=== PATIENT | male | born 1955 | race Caucasian/White ===

== ENCOUNTER 2024-07-09 03:20 | Inpatient (IN) | payer OTHER, MEDICAID ==
[~2024-07-09] VITALS: Ht 175.3 cm; Wt 81.6 kg
[2024-07-09 03:27] VITALS: BP 175/72; PULSE 85; RESP 14; TEMP 97.5; O2SAT 99
[2024-07-09 05:43] LABS: BASOPHILS % (AUTO) 0.4 % (0.0-2.0); EOSINOPHILS # (AUTO) 0.3 K/uL (0-0.4); EOSINOPHILS % (AUTO) 5.3 % (0.0-4.0); HEMATOCRIT 32.2 % (36-52); HEMOGLOBIN 10.6 g/dL (12.0-18.0); LYMPHOCYTES # (AUTO) 1.2 K/uL (2.0-11.5); LYMPHOCYTES % (AUTO) 18.3 % (20.5-51.1); MEAN CORPUSCULAR HEMOGLOBIN 28 pg (27-31); MEAN CORPUSCULAR HGB CONC 33 g/dL (33-37); MEAN CORPUSCULAR VOLUME 85.6 fL (80-94); MONOCYTES # (AUTO) 0.7 K/uL (0.8-1.0); MONOCYTES % (AUTO) 11.1 % (1.7-9.3); NEUTROPHILS # (AUTO) 4.1 K/uL (1.8-7.7); NEUTROPHILS % (AUTO) 64.9 % (42.2-75.2); PLATELET COUNT (AUTO) 192 K/uL (140-450); RED BLOOD CELL COUNT(AUTO) 3.77 MIL/uL (4.20-6.10); RED CELL DISTRIBUTION WIDTH 15.2 % (11.6-13.7); WHITE BLOOD COUNT (AUTO) 6.3 K/uL (4.8-10.8)
[2024-07-09 05:47] LABS: CALCIUM 8.8 mg/dL (8.5-10.1); CARBON DIOXIDE 25.6 mmol/L (21-32)
[2024-07-09 05:49] LABS: POTASSIUM 2.6 mmol/L (3.5-5.1)
[2024-07-09 05:58] LABS: ALANINE AMINOTRANSFERASE 13 U/L (12-78); ALBUMIN 3.4 g/dL (3.4-5.0); ALKALINE PHOSPHATASE 80 U/L (50-136); ASPARTATE AMINOTRANSFERASE 18 U/L (15-37); BILIRUBIN,DIRECT 0.1 mg/dL (0.0-0.3); LIPASE 11 U/L (16-77); TOTAL BILIRUBIN 0.4 mg/dL (0.0-1.0); TOTAL PROTEIN, SERUM 7.4 g/dL (6.4-8.2)
[2024-07-09] MEDS ORDERED: METO25TA PO (06:15)
[2024-07-09] MEDS ORDERED: AMLO5TAB PO (06:15)
[2024-07-09] MEDS ORDERED: METF-346 PO (06:15)
[2024-07-09] MEDS ORDERED: ATOR20TA PO (06:15)
[2024-07-09] MEDS ORDERED: POTA10TA70 PO (06:15)
[2024-07-09] MEDS ORDERED: ASPI-1129 PO (06:15)
[2024-07-09] MEDS ORDERED: SYN.05 PO (06:15)
[2024-07-09] MEDS ORDERED: ARIP10TA PO (06:15)
[2024-07-09] MEDS ORDERED: FURO-572 PO (06:15)
[2024-07-09] MEDS: NACL 0.9% 1,000 ML IV ONE (06:30)
[2024-07-09] MEDS: POTASSIUM CHLORIDE 10 MEQ TABER PO ONE (06:31)
[2024-07-09] MEDS: MAG SULF 2000 MG/WATER PREMIX 50 ML IV ONE (06:32)
[2024-07-09 09:24] LABS: APPEARANCE,URINE CLEAR (CLEAR); BILIRUBIN,URINE NEGATIVE (NEGATIVE); BLOOD, URINE TRACE-L (NEGATIVE); COLOR,URINE YELLOW (YELLOW); LEUKOCYTE ESTERASE ,URINE NEGATIVE (NEGATIVE); NITRITE, URINE NEGATIVE (NEGATIVE); PROTEIN,URINE NEGATIVE (NEGATIVE); UGLUCOSE NEGATIVE (NEGATIVE); UROBILINOGEN,URINE 0.2 EU/dL (0.2 - 1)
[2024-07-09 10:00] LABS: BACTERIA,URINE 1+ /HPF (None Seen); SQUAMOUS EPITHELIAL CELL,UR 4-10 (MOD) /LPF (0-3 (FEW)); WBC,URINE 0-5 /HPF (0-5)
[2024-07-09] MEDS: ACETAMINOPHEN 325 MG TAB PO PRN (12:31)
[2024-07-09] MEDS: NACL 0.9% 1,000 ML IV SCH (12:33)
[2024-07-09 14:24] VITALS: RESP 16; O2SAT 100
[2024-07-09 16:00] VITALS: BP 130/42; PULSE 66; PULSE 87; RESP 16; TEMP 98.6; O2SAT 100
[2024-07-09] MEDS: HYDRAGUARD CREAM TP SCH (16:25)
[2024-07-09 20:00] VITALS: BP 140/62; PULSE 75; RESP 18; TEMP 97.7; O2SAT 100
[2024-07-09 20:06] VITALS: RESP 18; O2SAT 98
[2024-07-10] VITALS (8 sets, daily range): BP systolic 124–158; BP diastolic 44–64; PULSE 64–96; RESP 16–18; TEMP 95.7–99.8; O2SAT 95–98
[2024-07-10] MEDS: METOPROLOL 25 MG TAB PO SCH (21:44)
[2024-07-11] VITALS (7 sets, daily range): BP systolic 126–151; BP diastolic 53–62; PULSE 71–81; RESP 16–18; TEMP 98.1–98.4; O2SAT 96–97
[2024-07-11] MEDS: LEVOTHYROXINE 0.05 MG TAB PO SCH (05:45)
[2024-07-11] MEDS: FUROSEMIDE 20 MG TAB PO SCH (09:56)
[2024-07-11] MEDS: POTASSIUM CHLORIDE 10 MEQ TABER PO SCH (09:56)
[2024-07-11] MEDS: ECOTRIN 81 MG TABEC PO SCH (09:57)
[2024-07-11] MEDS: ARIPiprazole 10 MG TAB PO SCH (09:57)
[2024-07-11] MEDS: amLODIPine 5 MG TAB PO SCH (09:57)
[2024-07-11] MEDS: ATORVASTATIN 20 MG TAB PO SCH (09:57)
[2024-07-12 01:58] VITALS: BP 147/58; PULSE 75; RESP 18; TEMP 97.5; O2SAT 92
[2024-07-12 08:00] VITALS: BP 121/41; PULSE 63; PULSE 81; RESP 18; TEMP 97.9; O2SAT 96; O2SAT 98
== END 2024-07-12 11:20 | disposition home or self-care (01) | DRG 392 ==
LOC: MED 03:20 → MMU 11:13
PROVIDERS: ADMIT Student in an Organized Health Care Education/Training Program; ATTEND Student in an Organized Health Care Education/Training Program
DX: A08.4 Viral intestinal infection, unspecified (principal); I10 Essential (primary) hypertension; E11.8 Type 2 diabetes mellitus with unspecified complications; Z79.899 Other long term (current) drug therapy; F29 Unspecified psychosis not due to a substance or known physiological condition
CPT/HCPCS: 36415; 71045; 80048; 80076; 81001; 83690; 84484; 85025; 87045; 87070; 87081; 87086; 93005; 96365; 96366; 99285; J3475; Q0092